=== PATIENT | male | born 1935 | race Asian ===

== ENCOUNTER 2018-03-10 13:29 | Emergency (ER) | payer MEDICARE, OTHER ==
[2018-03-10] MEDS: ACETAMINOPHEN 325 MG TAB PO (14:48)
== END 2018-03-10 15:41 | disposition home or self-care (01) ==
LOC: FTE 13:29
DX: S02.2XXA Fracture of nasal bones, initial encounter for closed fracture (principal); F17.210 Nicotine dependence, cigarettes, uncomplicated; R07.89 Other chest pain; V49.50XA Passenger injured in collision with unspecified motor vehicles in traffic accident, initial encounter; Z79.82 Long term (current) use of aspirin; Z79.84 Long term (current) use of oral hypoglycemic drugs
CPT/HCPCS: 70160; 71046; 72040; 99284-25